=== PATIENT | female | born 1960 | race Caucasian/White ===

== ENCOUNTER 2017-09-20 11:36 | Inpatient (IN) | payer BC ==
[~2017-09-20] VITALS: Ht 157.5 cm; Wt 46.7 kg
[2017-09-20] MEDS ORDERED: ZOLPIDEM TARTRATE 10 MG TABLET PO PRN ×2 (13:45→14:00)
[2017-09-20] MEDS ORDERED: LORazepam 2 MG TABLET PO PRN (13:45)
[2017-09-20 13:53] VITALS: BP 148/85
[2017-09-20] MEDS ORDERED: MAG HYDROX/AL HYDROX/SIMETH ES 30 ML SUSPENSION UDCUP PO PRN (14:00)
[2017-09-20] MEDS ORDERED: TUBERCULIN, PURIFIED PROTEIN DERIVATIVE 5 TU/0.1 ML SYG ID ONE (14:00)
[2017-09-20] MEDS ORDERED: ACETAMINOPHEN 325 MG TABLET PO PRN ×2 (14:00→20:30)
[2017-09-20] MEDS ORDERED: MAGNESIUM HYDROXIDE SUSPENSION 30 ML UDCUP PO PRN (14:00)
[2017-09-20] MEDS ORDERED: HydrOXYzine PAMOATE 50 MG CAPSULE PO PRN (14:00)
[2017-09-20] MEDS ORDERED: LOPERAMIDE HCL 2 MG CAPSULE PO PRN (14:00)
[2017-09-20] MEDS ORDERED: QUEtiapine FUMARATE 100 MG TABLET PO PRN (14:00)
[2017-09-20] MEDS ORDERED: GuaiFENesin/D-METHORPHAN [SUGAR-FREE] 200-20MG/10 ML SYRUP UDCUP PO PRN (14:00)
[2017-09-20] MEDS ORDERED: PROMETHAZINE HCL 25 MG TABLET PO PRN (14:00)
[2017-09-20 15:24] VITALS: BP 133/88
[2017-09-20 16:16] VITALS: BP 137/75
[2017-09-20] MEDS ORDERED: PNEUMOCOCCAL VACCINE POLYVALENT 0.5 ML VIAL [PPSV23] IM ONE (17:45)
[2017-09-20] MEDS: THIAMINE HCL 100 MG TABLET PO SCH (17:48)
[2017-09-20] MEDS: LORazepam 2 MG TABLET PO PRN (17:52)
[2017-09-20] MEDS: QUEtiapine FUMARATE 25 MG TABLET PO SCH (20:22)
[2017-09-20] MEDS ORDERED: IBUPROFEN 400 MG TABLET PO PRN (20:30)
[2017-09-21 00:40] VITALS: BP 108/64
[2017-09-21 08:16] LABS: BASOPHILS % (AUTO) 0.6 % (0.0-2.0); EOSINOPHILS % (AUTO) 4.5 % (1.0-6.0); HEMATOCRIT 40.8 % (36-46); HEMOGLOBIN 13.8 g/dL (12.0-16.0); LYMPHOCYTES # (AUTO) 1.5 K/uL (1.0-4.8); LYMPHOCYTES % (AUTO) 27.5 % (22.0-44.0); MEAN CORPUSCULAR HEMOGLOBIN 29.8 pg (26.0-34.0); MEAN CORPUSCULAR HGB CONC 33.7 G/dL (31.0-37.0); MEAN CORPUSCULAR VOLUME 89 fL (80-100); MONOCYTES # (AUTO) 0.3 K/uL (0.1-1.0); MONOCYTES % (AUTO) 5.5 % (2.0-9.0); NEUTROPHILS # (AUTO) 3.5 K/uL (1.8-7.7); NEUTROPHILS % (AUTO) 61.9 % (40.0-70.0); PLATELET COUNT (AUTO) 301 K/uL (150-450); RED BLOOD CELL COUNT(AUTO) 4.61 MIL/uL (4.00-5.20); RED CELL DISTRIBUTION WIDTH 13.9 % (11.5-14.5)
[2017-09-21] MEDS: FOLIC ACID 1 MG TABLET PO SCH (08:17)
[2017-09-21] MEDS: MULTIVITAMINS WITH MINERALS, THERAPEUTIC TABLET PO SCH (08:17)
[2017-09-21] MEDS: THIAMINE HCL 100 MG TABLET PO SCH ×2 (08:17→16:35)
[2017-09-21] MEDS: LamoTRIgine 25 MG TABLET PO SCH (08:17)
[2017-09-21] MEDS: LORazepam 2 MG TABLET PO PRN ×2 (08:18→14:24)
[2017-09-21 08:20] VITALS: BP 121/83
[2017-09-21 08:35] LABS: HEMOGLOBIN A1C 5.8 % (4.5-6.2)
[2017-09-21 08:41] LABS: ALANINE AMINOTRANSFERASE 54 U/L (12-78); ALBUMIN 3.4 g/dL (3.4-5.0); ALKALINE PHOSPHATASE 84 U/L (46-116); ANION GAP 10 mmol/L (8-16); ASPARTATE AMINOTRANSFERASE 61 U/L (15-37); BILIRUBIN,TOTAL 0.8 mg/dL (0.1-1.0); CALCIUM, TOTAL 9.4 mg/dL (8.8-10.5); CARBON DIOXIDE 27 mmol/L (22-29); CHLORIDE 102 mmol/L (98-107); CHOL/HDL RATIO 2.1 (3.9-5.7); CHOLESTEROL 220 mg/dL (131-200); CREATININE 0.73 mg/dL (0.60-1.30); FREE T4 (FREE THYROXINE) 0.91 ng/dL (0.76-1.46); GLOMERULAR FILTR. RATE CALC > 60 mL/min (>60); GLUCOSE,RANDOM 72 mg/dL (70-110); HDL CHOLESTEROL 103 mg/dL (40-60); LDL CHOL (CALC.) 106 mg/dL (0-130); POTASSIUM 3.7 mmol/L (3.5-5.1); SODIUM SERUM 139 mmol/L (136-145); TOTAL PROTEIN, SERUM 7.1 g/dL (6.4-8.2); TRIGLYCERIDES 54 mg/dL (15-150); UREA NITROGEN, BLOOD 16 mg/dL (7-18)
[2017-09-21 09:46] LABS: AMPHET/METH SCREEN,URINE NEGATIVE (NEGATIVE); BARBITURATE SCREEN, URINE NEGATIVE (NEGATIVE); BENZODIAZEPINES SCREEN,URINE NEGATIVE (NEGATIVE); CANNABINOID SCREEN,URINE NEGATIVE (NEGATIVE); COCAINE SCREEN,URINE POSITIVE (NEGATIVE); METHADONE SCREEN, URINE NEGATIVE (NEGATIVE); OPIATE SCREEN,URINE NEGATIVE (NEGATIVE)
[2017-09-21 09:47] LABS: PHENCYCLIDINE SCREEN,URINE NEGATIVE (NEGATIVE)
[2017-09-21 10:14] LABS: APPEARANCE,URINE TURBID (CLEAR); GLUCOSE, URINE (UA) NEGATIVE (NEGATIVE); KETONES,URINE TRACE mg/dL (NEGATIVE); LEUKOCYTE ESTERASE ,URINE NEGATIVE (NEGATIVE); NITRATE,URINE NEGATIVE (NEGATIVE); OCCULT BLOOD,URINE NEGATIVE (NEGATIVE); PH,URINE 5.5 (5.0-8.0); PROTEIN,URINE TRACE (NEGATIVE); UROBILINOGEN,URINE 0.2 mg/dL (<=1.0)
[2017-09-21 12:05] LABS: BILIRUBIN,URINE PRELIM. POSITIVE (NEGATIVE)
[2017-09-21 12:48] LABS: RBC,URINE 0-2 /HPF (0-2)
[2017-09-21 12:49] LABS: BACTERIA,URINE Many /HPF (None Seen)
[2017-09-21 12:50] LABS: MUCUS,URINE Few LPF (None Seen); SQUAMOUS EPITHELIAL CELL,UR Few /LPF (None Seen); URIC ACID CRYSTALS,URINE Few /LPF (None Seen)
[2017-09-21 14:24] VITALS: BP 138/72
[2017-09-21 16:08] VITALS: BP 114/62
[2017-09-21 20:20] VITALS: BP 112/68
[2017-09-21] MEDS: TraMADol HCL 50 MG TABLET PO PRN (20:20)
[2017-09-21] MEDS: QUEtiapine FUMARATE 25 MG TABLET PO SCH (20:33)
[2017-09-22] VITALS: BP 106/65
[2017-09-22 08:16] VITALS: BP 108/74
[2017-09-22] MEDS: LamoTRIgine 25 MG TABLET PO SCH (08:27)
[2017-09-22] MEDS: MULTIVITAMINS WITH MINERALS, THERAPEUTIC TABLET PO SCH (08:27)
[2017-09-22] MEDS: NALTREXONE HCL 50 MG TABLET PO SCH (08:27)
[2017-09-22] MEDS: LORazepam 2 MG TABLET PO PRN ×2 (08:27→16:38)
[2017-09-22] MEDS: FOLIC ACID 1 MG TABLET PO SCH (08:27)
[2017-09-22] MEDS: THIAMINE HCL 100 MG TABLET PO SCH ×2 (08:27→16:32)
[2017-09-22 08:28] VITALS: BP 112/72
[2017-09-22] MEDS: TraMADol HCL 50 MG TABLET PO PRN (08:28)
[2017-09-22] MEDS: NICOTINE 21 MG/24 HOUR PATCH TD SCH (09:58)
[2017-09-22] MEDS ORDERED: QUET25TA34 PO (14:21)
[2017-09-22] MEDS ORDERED: LAMO25 PO (14:21)
[2017-09-22] MEDS ORDERED: NALT50TA PO (14:21)
[2017-09-22 16:15] VITALS: BP 127/82
[2017-09-22] MEDS: QUEtiapine FUMARATE 25 MG TABLET PO SCH (20:41)
[2017-09-23 04:16] VITALS: BP 102/73
[2017-09-23] MEDS: MULTIVITAMINS WITH MINERALS, THERAPEUTIC TABLET PO SCH (08:22)
[2017-09-23] MEDS: NALTREXONE HCL 50 MG TABLET PO SCH (08:22)
[2017-09-23] MEDS: FOLIC ACID 1 MG TABLET PO SCH (08:22)
[2017-09-23] MEDS: THIAMINE HCL 100 MG TABLET PO SCH (08:22)
[2017-09-23] MEDS: LamoTRIgine 25 MG TABLET PO SCH (08:22)
[2017-09-23] MEDS: NICOTINE 21 MG/24 HOUR PATCH TD SCH (08:23)
[2017-09-23 09:04] VITALS: BP 116/85
== END 2017-09-23 13:45 | disposition home or self-care (01) | DRG 885 ==
LOC: B2X 17:12
PROVIDERS: ADMIT Psychiatry & Neurology Psychiatry; ATTEND Psychiatry & Neurology Psychiatry
DX: F31.9 Bipolar disorder, unspecified (principal); R45.851 Suicidal ideations; Z91.19 Patient's noncompliance with other medical treatment and regimen; E78.5 Hyperlipidemia, unspecified; G89.29 Other chronic pain; M54.9 Dorsalgia, unspecified; F10.10 Alcohol abuse, uncomplicated; F19.10 Other psychoactive substance abuse, uncomplicated; Z71.51 Drug abuse counseling and surveillance of drug abuser; Z88.5 Allergy status to narcotic agent; Z71.41 Alcohol abuse counseling and surveillance of alcoholic
CPT/HCPCS: 83036; 84439; 84443; 86592; 87086